=== PATIENT | female | born 1950 | race Caucasian/White ===

== ENCOUNTER 2018-02-24 13:20 | Emergency (ER) | payer BC ==
[~2018-02-24] VITALS: Ht 170.2 cm; Wt 140.6 kg
[~2018-02-24 13:20] MED LIST: CLC100X PO; LEVO125T8 PO; MULTTAB58 PO; NAPR220T40 PO; PHEN1TAB86 PO; [UNRECOGNIZED DRUG - OTHER]
[2018-02-24 13:29] VITALS: TEMP 36.7; Ht 170.2 cm; Wt 140.6 kg
--- NOTE | 2018-02-24 14:28 | EMERGENCY ROOM VISIT NOTE ---
History Report prepared by Bakari: Fina Kumar Under the Supervision of: Dr. Fernando Puri D.O. First contact with patient: 14:12 Chief Complaint: OTHER COMPLAINT Stated Complaint: FACE WARM, HEART BEAT CAN BE FELT SOMETIMES History of Present Illness The patient is a 67 year old female who presents to the Emergency Room with complaints of persistent general palpitations since this morning. The patient notes that about three months ago she was started on a diuretic and she had already been taking Losartan for her blood pressure. She notes that within a couple weeks of use, she began to develop a rash on her back and her face became hot. She notes she developed palpitations at the same time. She informed her PCP and she was taken off the diuretic and her symptoms soon resolved. She states that was about one month ago when her symptoms resolved and the last time she experienced the palpitations. She currently describes the palpitations as loud, though not fast. She denies any current rash. She denies any history of irregular rhythm. She denies any chest pain or shortness of breath. She denies any new leg swelling. She is unsure when the last time her thyroid studies were checked. She notes she was told she had a heart murmur several years ago. She denies any tobacco use or alcohol use. Source of History: patient Onset: since this morning Position: other (general ) Quality: other (palpitations) Timing: other (persistent) Associated Symptoms: No chest pain, No SOB, No rash Note: She denies any new leg swelling. Review of Systems See HPI for pertinent positives & negatives. A total of 10 systems reviewed and were otherwise negative. Past Medical & Surgical Medical Problems: (1) HTN (hypertension) (2) Seizure Surgical Problems: (1) H/O removal of cyst (2) H/O: hysterectomy (3) Hx of cholecystectomy Family History No pertinent family history Social History Smoking Status: Never Smoker Smokeless Tobacco Use: No Alcohol Use: none Drug Use: none Marital Status: single Housing Status: lives alone Occupation Status: unemployed Current/Historical Medications Scheduled Ascorbic Acid (Vitamin C), 500 MG PO DAILY Cholecalciferol (Vitamin D3), 1,000 UNITS PO DAILY Flaxseed (Linseed) (Flax Oil), TID Levothyroxine Sodium (Synthroid), 125 MCG PO DAILY Losartan Potassium (Cozaar), 100 MG PO DAILY Naproxen Sodium (Aleve), 220 MG PO PRN Phenobarbital (Phenobarbital), 32.4 MG PO TID [chl], DAILY Allergies Coded Allergies: Phenytoin (Verified Allergy, Severe, THROAT SWELLING, 02/24/18) THROAT SWELLING Adhesives (Verified Allergy, Unknown, _, 02/24/18) Acetaminophen (Verified Adverse Reaction, Mild, NIGHTMARES, 02/24/18) NIGHTMARES Physical Exam Vital Signs Date Time Temp Pulse Resp B/P (MAP) Pulse Ox O2 Delivery O2 Flow Rate FiO2 02/24/18 16:14 62 170/66 94 02/24/18 14:59 62 184/74 95 Room Air 02/24/18 14:59 95 Room Air 02/24/18 14:22 78 02/24/18 13:29 36.7 80 18 161/75 95 Room Air Physical Exam GENERAL: Patient is awake, alert, and in no acute distress. Patient is resting comfortably and showing no signs of anxiety EYES: The conjunctivae are clear. The pupils are round and reactive. EARS, NOSE, MOUTH AND THROAT: The nose is without any evidence of any deformity. Mucous membranes are moist tongue is midline NECK: The neck is nontender and supple. RESPIRATORY: Normal respiratory effort is noted there is no evidence of wheezing rhonchi or rales CARDIOVASCULAR: Regular rate and rhythm noted. Systolic murmur suggested by auscultation. GASTROINTESTINAL: The abdomen is soft. Bowel sounds are present in all quadrants. Abdomen is nontender MUSCULOSKELETAL/EXTREMITIES: There is no evidence of gross deformity full range of motion is noted in the hips and shoulders SKIN: Trace pedal edema bilaterally. NEUROLOGIC: Patient is awake alert and oriented x3. Medical Decision & Procedures ER Provider Diagnostic Interpretation: Radiology results as stated below per my review and radiologist interpretation: SINGLE VIEW CHEST CLINICAL HISTORY: Dyspnea. FINDINGS: An AP, portable, upright chest radiograph is obtained. No prior studies are available for comparison at the time of dictation. The examination is degraded by portable technique and patient rotation. The heart is enlarged and there is atherosclerotic calcification of the thoracic aorta. The pulmonary vasculature is noncongested. Nonspecific interstitial thickening is likely chronic. No airspace consolidation or large pleural effusion is identified. No pneumothorax is seen. The skeletal structures are osteopenic. Degenerative change is noted throughout the thoracic spine. IMPRESSION: Cardiomegaly with no acute cardiopulmonary abnormality. Electronically signed by: Jaskaran Calix M.D. 02/24/2018 2:34 PM Dictated Date/Time: 02/24/2018 2:32 PM Laboratory Results 02/24/18 14:45 Red Blood Count 4.73, Mean Corpuscular Volume 95.6, Mean Corpuscular Hemoglobin 32.1, Mean Corpuscular Hemoglobin Concent 33.6, Mean Platelet Volume 10.7, Neutrophils (%) (Auto) 72.1, Lymphocytes (%) (Auto) 18.8, Monocytes (%) (Auto) 7.4, Eosinophils (%) (Auto) 1.2, Basophils (%) (Auto) 0.3, Neutrophils # (Auto) 6.51, Lymphocytes # (Auto) 1.70, Monocytes # (Auto) 0.67, Eosinophils # (Auto) 0.11, Basophils # (Auto) 0.03 02/24/18 14:45 Test 02/24/18 14:45 White Blood Count 9.04 K/uL (4.8-10.8) Red Blood Count 4.73 M/uL (4.2-5.4) Hemoglobin 15.2 g/dL (12.0-16.0) Hematocrit 45.2 % (37-47) Mean Corpuscular Volume 95.6 fL (80-100) Mean Corpuscular Hemoglobin 32.1 pg (25-34) Mean Corpuscular Hemoglobin Concent 33.6 g/dl (32-36) Platelet Count 219 K/uL (130-400) Mean Platelet Volume 10.7 fL (7.4-10.4) Neutrophils (%) (Auto) 72.1 % Lymphocytes (%) (Auto) 18.8 % Monocytes (%) (Auto) 7.4 % Eosinophils (%) (Auto) 1.2 % Basophils (%) (Auto) 0.3 % Neutrophils # (Auto) 6.51 K/uL (1.4-6.5) Lymphocytes # (Auto) 1.70 K/uL (1.2-3.4) Monocytes # (Auto) 0.67 K/uL (0.11-0.59) Eosinophils # (Auto) 0.11 K/uL (0-0.5) Basophils # (Auto) 0.03 K/uL (0-0.2) RDW Standard Deviation 46.6 fL (36.4-46.3) RDW Coefficient of Variation 13.4 % (11.5-14.5) Immature Granulocyte % (Auto) 0.2 % Immature Granulocyte # (Auto) 0.02 K/uL (0.00-0.02) Prothrombin Time 10.8 SECONDS (9.0-12.0) Prothromb Time International Ratio 1.0 (0.9-1.1) Activated Partial Thromboplast Time 26.9 SECONDS (21.0-31.0) Partial Thromboplastin Ratio 1.0 Anion Gap 8.0 mmol/L (3-11) Est Creatinine Clear Calc Drug Dose 92.1 ml/min Estimated GFR () 80.5 Estimated GFR (Non- 69.4 BUN/Creatinine Ratio 22.2 (10-20) Calcium Level 9.4 mg/dl (8.5-10.1) Magnesium Level 1.9 mg/dl (1.8-2.4) Total Bilirubin 0.3 mg/dl (0.2-1) Aspartate Amino Transf (AST/SGOT) 14 U/L (15-37) Alanine Aminotransferase (ALT/SGPT) 29 U/L (12-78) Alkaline Phosphatase 72 U/L (45-117) Troponin I < 0.015 ng/ml (0-0.045) Total Protein 8.0 gm/dl (6.4-8.2) Albumin 3.5 gm/dl (3.4-5.0) Globulin 4.5 gm/dl (2.5-4.0) Albumin/Globulin Ratio 0.8 (0.9-2) Thyroid Stimulating Hormone (TSH) 1.560 uIu/ml (0.300-4.500) Free Thyroxine 1.20 ng/dl (0.80-1.60) Phenobarbital Level 10.3 mcg/mL (15.0-40.0) Laboratory results per my review. ECG Per My Interpretation Indication: palpitations Rate (beats per minute): 62 Rhythm: sinus with SA Findings: no acute ischemic change, no ectopy Change: no significant change (when compared to 09/23/2012) ED Course 1421: The patient was evaluated in room C6. A complete history and physical examination were performed. 1520: I reassessed the patient at this time. She is feeling better. 1600: I reassessed the patient at this time. She is feeling better and resting comfortably. I discussed the results and treatment plan with the patient. I answered all pertaining questions that she had. She expressed understanding and verbalized agreement. The patient will be discharged home. Medical Decision Prior records/ancillary studies reviewed. Triage Nursing notes reviewed. The patient's history was concerning for palpitations. Differential diagnosis: Etiologies such as premature contractions, electrolyte abnormality, cardiac dysrhythmia, thyroid dysfunction, pulmonary embolism, infection, gastrointestinal, as well as others were entertained. The patient is a 67-year-old female who presented to the emergency department palpitations. The patient had a few episode of PVCs on the monitor. She did not appear to be significantly symptomatically these PVCs. She denied having chest pain or exertional symptoms. I discussed the patient's laboratory and radiographic studies with her. She was encouraged to rest and avoid any strenuous activity. She was also encouraged to continue all medications as prescribed. I discussed the possibility that she may need further studies such as an echocardiogram or Holter monitor to further evaluate her symptoms. She was also encouraged to return to the emergency department immediately if symptoms change worsen or the need arises. Medication Reconcilliation Current Medication List: was personally reviewed by me Blood Pressure Screening Patient's blood pressure: Elevated blood pressure Blood pressure disposition: Elevated BP felt to be situational Impression Primary Impression: Palpitations Additional Impression: PVC (premature ventricular contraction) Scribe Attestation The scribe's documentation has been prepared under my direction and personally reviewed by me in its entirety. I confirm that the note above accurately reflects all work, treatment, procedures, and medical decision making performed by me. Departure Information Dispostion Home / Self-Care Referrals Shon Garcia M.D. (PCP) Forms HOME CARE DOCUMENTATION FORM, IMPORTANT VISIT INFORMATION, WORK / SCHOOL INSTRUCTIONS Patient Instructions Heart Palpitations, My [facility], Premature Ventricular Contract About Additional Instructions Call your family doctor in the morning to schedule a follow-up appointment. Rest and avoid any strenuous activity. You may require further study such as an echocardiogram and a Holter monitor to further evaluate the cause your symptoms. Return to the emergency department immediately if symptoms change worsen or the need arises. Problem Qualifiers
--- NOTE | 2018-02-24 14:36 | DIAGNOSTIC IMAGING REPORT ---
SINGLE VIEW CHEST CLINICAL HISTORY: Dyspnea. FINDINGS: An AP, portable, upright chest radiograph is obtained. No prior studies are available for comparison at the time of dictation. The examination is degraded by portable technique and patient rotation. The heart is enlarged and there is atherosclerotic calcification of the thoracic aorta. The pulmonary vasculature is noncongested. Nonspecific interstitial thickening is likely chronic. No airspace consolidation or large pleural effusion is identified. No pneumothorax is seen. The skeletal structures are osteopenic. Degenerative change is noted throughout the thoracic spine. IMPRESSION: Cardiomegaly with no acute cardiopulmonary abnormality. Electronically signed by: Jaskaran Calix M.D. 02/24/2018 2:34 PM Dictated Date/Time: 02/24/2018 2:32 PM
[2018-02-24] MEDS ORDERED: LOSA1TAB38 PO (14:57)
[2018-02-24] MEDS ORDERED: CHOL1000 PO (14:57)
[2018-02-24] MEDS ORDERED: SYN125 PO (14:57)
[2018-02-24] MEDS ORDERED: FLAXOIL2 (14:57)
[2018-02-24] MEDS ORDERED: PB30 PO (14:57)
[2018-02-24] MEDS ORDERED: ASCA500 PO (14:57)
[2018-02-24 14:59] VITALS: O2SAT 95
[2018-02-24 15:02] LABS: BASO % 0.3 %; BASO ABS # 0.03 K/uL (0-0.2); EOS % 1.2 %; EOS ABS # 0.11 K/uL (0-0.5); HEMATOCRIT 45.2 % (37-47); HEMOGLOBIN 15.2 g/dL (12.0-16.0); IG# 0.02 K/uL (0.00-0.02); LYMPH % 18.8 %; MEAN CELL VOLUME 95.6 fL (80-100); MEAN CORPUSCULAR HEMOGLOBIN 32.1 pg (25-34); MEAN CORPUSCULAR HGB CONC 33.6 g/dl (32-36); MEAN PLATELET VOLUME 10.7 fL (7.4-10.4); MONO % 7.4 %; MONO ABS # 0.67 K/uL (0.11-0.59); NEUT % 72.1 %; NEUT ABS # 6.51 K/uL (1.4-6.5); PLATELET COUNT 219 K/uL (130-400); RED CELL DISTRIBUTION WIDTH CV 13.4 % (11.5-14.5); RED CELL DISTRIBUTION WIDTH SD 46.6 fL (36.4-46.3); WHITE BLOOD COUNT 9.04 K/uL (4.8-10.8)
[2018-02-24 15:07] LABS: PTT PATIENT 26.9 SECONDS (21.0-31.0)
[2018-02-24 15:52] LABS: ALBUMIN 3.5 gm/dl (3.4-5.0); ALKALINE PHOSPHATASE 72 U/L (45-117); ALT/SGPT 29 U/L (12-78); AST/SGOT 14 U/L (15-37); BLOOD UREA NITROGEN 19 mg/dl (7-18); CALCIUM 9.4 mg/dl (8.5-10.1); CARBON DIOXIDE 27 mmol/L (21-32); CREATININE 0.86 mg/dl (0.60-1.20); GLUCOSE 116 mg/dl (70-99); POTASSIUM 4.3 mmol/L (3.5-5.1); SODIUM 137 mmol/L (136-145)
[2018-02-24 16:14] VITALS: BP 170/66; PULSE 62; O2SAT 94
== END 2018-02-24 16:16 | disposition home or self-care (01) ==
LOC: C.EDB 13:23 → C.EDC 16:16
DX: R00.2 Palpitations (principal); I49.3 Ventricular premature depolarization; I10 Essential (primary) hypertension; Z88.8 Allergy status to other drugs, medicaments and biological substances

== ENCOUNTER 2023-05-05 11:20 | Inpatient (IN) ==
[2023-05-05] MEDS ORDERED: hydrALAZINE HCL 20 MG/ML VIAL IV STA ×2 (12:07→14:05)
--- NOTE | 2023-05-05 12:28 | Emergency Department Note ---
Impression & Plan Hypertension, Atrial flutter ED Provider Note NAME: SARAH MCCORMACK AGE: 73 SEX: F : 1950 ARRIVES VIA: Walk-In INFORMANT: [Patient] ED PROVIDER(S): [Jaskaran Shi MD] CHIEF COMPLAINT: Abnormal labs/ECG HISTORY OF PRESENT ILLNESS: The patient is a 73-year-old female who states that she had an eye procedure today as an outpatient and afterwards, was found to be in atrial flutter/atrial fibrillation. The patient states that she has been hypertensive today. She took her normal medications for blood pressure this morning. Patient is not short of breath, no fluttering in the chest. No chest pain. She has no history of previous A-fib or a flutter. She is not on blood thinning agents. PMHx/PSHx: See Below SOCIAL HISTORY: See Below. PHYSICAL EXAM: GENERAL: Patient is in no acute distress. HEENT: No acute trauma, normocephalic atraumatic, mucous membranes moist, no nasal congestion. NECK: No stridor, no adenopathy, no meningismus, trachea is midline. LUNGS: Clear to auscultation bilaterally, no wheeze, no rhonchi, breath sounds equal. HEART: Irregular rhythm, normal rate, no murmurs ABDOMEN: Soft, nontender, bowel sounds positive, no peritonitis. EXTREMITIES: No cyanosis, significant bilateral pedal edema, full range of motion of all the joints without pain or difficulty, no signs for acute trauma. NEUROLOGIC: Oriented x 3, no acute motor or sensory deficits, no focal weakness. SKIN: No rash, no jaundice, no diaphoresis. DIFFERENTIAL DIAGNOSIS: A-fib or a flutter, SVT, V. tach, uncontrolled hypertension, renal failure, electrolyte imbalance, thyroid disorder, [place], among others. EMERGENCY DEPARTMENT COURSE/PROCEDURES: Prior/Outside records reviewed: Outpatient surgical center note. ECG per my interpretation: Indication was abnormal ECG. The ECG shows atrial flutter with variable AV block. The rate is 73. There is no ST elevation, no PVCs. There is some nonspecific ST change. The QTc is 420 Continuous Cardiac Monitoring per my interpretation: An order was placed for continuous cardiac monitoring. The monitor shows a rate of 77 with atrial flutter. Critical Care Note: I have personally spent 41 minutes of critical care time in the direct management of this patient. This includes bedside care, interpretation of diagnostic studies, and testing, discussion with consultants, patient, and family members, and other required patient management activities. This 41 minutes is in excess of all separately billable procedures. MEDICAL DECISION MAKING: There is no leukocytosis or concerning anemia. There is a normal platelet count. No coagulopathy. No renal failure or significant electrolyte abnormality. No concerning liver enzyme elevation. Patient appears to be in a euthyroid state. ECG shows atrial flutter with a variable block. The rate is in the 70s. Cardiac enzyme testing x1 is not consistent with acute cardiac injury. COVID test returned negative. Chest film did not show mediastinal widening, pneumonia or pneumothorax per my review. Patient was given her typical dose of oral phenobarbital, this medication was due. She received IV hydralazine, 10 mg. A second dose of IV hydralazine was given. I did contact Dr. Wild of cardiology. No emergent cardiac intervention is required as the patient is rate controlled. The patient does likely have und erlying conduction disease as her heart rate should be quite a bit faster-she is not on any rate limiting medications. Patient's blood pressure needs controlled, work-up for the atrial flutter is req uired. Hospitalization is indicated. Of note, I did avoid using beta-blockers or calcium channel blockers for hypertension as I did not want to further lower the ventricular rate, or further worsen the conduction block. DISPOSITION: Patient's presentation and findings warrant a hospital stay. Past Med/Surg History Medical History Abnormal blood findings pt unable to specify. states "something about protein." follows with [facility]. Anxiety Cardiac murmur echo 11/2022 [place]. no [place] History of rectal abscess History of uterine cancer treated surgically HTN (hypertension) Hypercholesteremia Hypothyroidism Morbid obesity Osteoarthritis Poor historian Sciatica Seizures per pt, last seizure >20 years ago Surgical History History of cholecystectomy History of rectal surgery x 4 for rectal abscess History of removal of cyst multiple History of tooth extraction History of total abdominal hysterectomy and bilateral salpingo-oophorectomy Family History Father Hodgkin disease Mother Heart disease Sister Cancer Denies family history of Ovarian cancer Prostate cancer Myocardial infarction Breast cancer Colorectal cancer Social History Smoking Status: Never smoker Second Hand Exposure: No; Do You Dip or Chew Tobacco: No; Hx Alcohol Use: No Hx Substance Use: No Preferred Language: Palauan Communication Ability: Effective Visual Impairment: No Limitations Hearing Ability: Normal Banquet Director Required: No Beliefs That Will Affect Care: None marital status: Single Current Living Situation: Alone current occupational status: retired current occupation: retired from career with [employer] Feels Safe at Home: Yes Childhood Exposure to Second-Hand Smoke: No Diet: regular caffeine: Yes during the past year weight has: decreased > 10 lbs Dental Care, Regularly: Yes Physical Activity Frequency: Daily Physical Activity Frequency Comment: stretch exercises for back and legs Seatbelt Use: always Sunscreen Use: No Assistive Devices: Glasses Allergies Allergies Allergy/AdvReac Type Severity Reaction Status Date / Time phenytoin Allergy Severe THROAT Verified 05/05/23 09:26 SWELLING dilantin caps adhesive Allergy Unknown Rash Verified 05/05/23 09:14 oxycodone Allergy Unknown pt unsure Verified 05/05/23 09:14 Sulfa (Sulfonamide Allergy pt unsure Verified 05/05/23 09:14 Antibiotics) hydrochlorothiazide AdvReac Severe 'THUMPING Verified 05/05/23 09:14 [From Hyzaar] SENSATION IN SKIN OVER ENTIRE BODY' losartan [From Hyzaar] AdvReac Severe 'THUMPING Verified 05/05/23 09:14 SENSATION IN SKIN OVER ENTIRE BODY' acetaminophen AdvReac Mild NIGHTMARES Verified 05/05/23 09:14 Home Meds Home Medications Medication Instructions Recorded Confirmed cholecalciferol (vitamin D3) 25 1,000 unit PO QAM 01/25/19 05/05/23 mcg (1,000 unit) tablet (Vitamin D3) flaxseed oil 1,000 mg capsule 1,000 mg PO QAM 01/25/19 05/05/23 naproxen sodium 220 mg tablet 220 mg PO DAILY PRN Pain 11/10/19 05/05/23 ascorbic acid (vitamin C) 500 mg 500 mg PO QAM 12/04/21 05/05/23 tablet docusate sodium 50 mg capsule 50 mg PO DAILY PRN Constipation 04/28/23 05/05/23 (Stool Softener) levothyroxine 125 mcg tablet 125 mcg PO QAM 04/28/23 05/05/23 losartan 100 mg tablet 100 mg PO QAM 04/28/23 05/05/23 Previous Rx's Medication Instructions Recorded phenobarbital 30 mg tablet 30 mg PO TID #90 tabs 01/06/23 Results & Data (ED) Vital Signs Vital Signs - 24 hr 05/05/23 11:23 05/05/23 11:48 05/05/23 12:14 Temperature 36.6 C Temperature Source Temporal Artery Scan Pulse Rate 85 77 Pulse Rate [Apical] 69 Pulse Rhythm [Apical] Regular Respiratory Rate 20 16 Respiratory Effort / Characteristics Non-Labored Spontaneous Respiratory Depth Normal Blood Pressure 198/129 H Blood Pressure [Left Arm] 196/101 H Blood Pressure Mean 152 Blood Pressure Mean [Left Arm] 132 Pulse Oximetry 98 96 Oxygen Delivery Method Room Air Room Air Sepsis Recent Fever Within 48 Hours No Sepsis New/Unexplained Change in Mental Status N/A Sepsis Action Taken by Nursing No Action Required 05/05/23 13:03 Temperature Temperature Source Pulse Rate Pulse Rate [Apical] 82 Pulse Rhythm [Apical] Regular Respiratory Rate 18 Respiratory Effort / Characteristics Respiratory Depth Blood Pressure Blood Pressure [Left Arm] 226/108 H Blood Pressure Mean Blood Pressure Mean [Left Arm] 147 Pulse Oximetry 95 Oxygen Delivery Method Room Air Sepsis Recent Fever Within 48 Hours Sepsis New/Unexplained Change in Mental Status Sepsis Action Taken by Longterm Medications Current Medication List: was personally reviewed by me Laboratory Data Attestation: I reviewed the patient's lab results. 05/05/23 11:44 05/05/23 11:44 Lab Results 05/05/23 05/05/23 05/05/23 Range/Units 11:44 11:44 12:53 WBC Cancelled RBC Cancelled Hgb Cancelled Hct Cancelled MCV Cancelled MCH Cancelled MCHC Cancelled RDW Std Deviation Cancelled RDW Coeff of Danette Cancelled Plt Count Cancelled MPV Cancelled Immature Gran % (Auto) Cancelled Neut % (Auto) Cancelled Lymph % (Auto) Cancelled [place] % (Auto) Cancelled Eos % (Auto) Cancelled Baso % (Auto) Cancelled Neut # (Auto) Cancelled Lymph # (Auto) Cancelled [place] # (Auto) Cancelled Eos # (Auto) Cancelled Baso # (Auto) Cancelled Immature Gran # (Auto) Cancelled Absolute Nucleated RBC Cancelled Nucleated RBC % (auto) Cancelled Neutrophils % (Manual) Cancelled Band Neutrophils % Cancelled Lymphocytes % (Manual) Cancelled Prolymphocyte % Cancelled Reactive Lymphs % (Man) Cancelled Monocytes % (Manual) Cancelled Eosinophils % (Manual) Cancelled Basophils % (Manual) Cancelled Metamyelocytes % (Man) Cancelled Myelocytes % (Man) Cancelled Promyelocytes % (Man) Cancelled Blast Cells % (Manual) Cancelled Plasma Cell % (Manual) Cancelled Other Cells % Cancelled Nucleated RBC % Cancelled Neutrophils # (Manual) Cancelled Band Neutrophils # Cancelled Total Absolute Neuts Cancelled Lymphocytes # (Manual) Cancelled Prolymphocyte # Cancelled Reactive Lymphs # Cancelled Total Abs Lymphocytes Cancelled Monocytes # (Manual) Cancelled Eosinophils # (Manual) Cancelled Basophils # (Manual) Cancelled Metamyelocytes # (Man) Cancelled Myelocytes # (Manual) Cancelled Promyelocytes # (Man) Cancelled Blast Cells # (Man) Cancelled Plasma Cell # (Manual) Cancelled Other Cells # Cancelled Nucleated RBCs # (Man) Cancelled Hypersegmented Neuts Cancelled Hyposegmented Neuts Cancelled Hypogranular Neuts Cancelled Large Granular Lymphs Cancelled # Lrg Granular Lymphs Cancelled Hairy Cells Cancelled Smudge Cells Cancelled Toxic Granulation Cancelled Toxic Vacuolation Cancelled Dohle Bodies Cancelled Ailyn Rods Cancelled Platelet Estimate Cancelled Hypogranular Platelets Cancelled Giant Platelets Cancelled Platelet Satelliting Cancelled RBC Morphology Cancelled Polychromasia Cancelled Hypochromasia Cancelled Poikilocytosis Cancelled Basophilic Stippling Cancelled Anisocytosis Cancelled Microcytosis Cancelled Macrocytosis Cancelled Spherocytes Cancelled Pappenheimer Bodies Cancelled Sickle Cells Cancelled Target Cells Cancelled Tear Drop Cells Cancelled Ovalocytes Cancelled Stomatocytes Cancelled Ling-Renova Bodies Cancelled Echinocytes Cancelled Acanthocytes (Spur) Cancelled Rouleaux Cancelled RBC Agglutinates Cancelled Schistocytes Cancelled Sezary Cell Cancelled PT (9.0-12.0) Seconds INR (0.9-1.1) APTT (21.0-31.0) Seconds PTT Ratio Sodium Cancelled Potassium Cancelled Chloride Cancelled Carbon Dioxide Cancelled Anion Gap Cancelled BUN Cancelled Creatinine Cancelled Est Cr Clr Drug Dosing Cancelled Est GFR ( Amer) Cancelled Est GFR (Non-Af Amer) Cancelled BUN/Creatinine Ratio Cancelled Glucose Cancelled Calcium Cancelled Magnesium Cancelled Total Bilirubin Cancelled AST Cancelled ALT Cancelled Alkaline Phosphatase Cancelled Troponin I High Sens Cancelled Total Protein Cancelled Albumin Cancelled Globulin Cancelled Albumin/Globulin Ratio Cancelled TSH (0.300-4.500) uIu/ml SARS-CoV-2, RNA, NAAT NEGATIVE (NEGATIVE) Blood Parasites ID Cancelled 05/05/23 05/05/23 05/05/23 Range/Units 13:13 13:13 13:13 WBC 9.07 RBC 4.81 Hgb 15.7 Hct 45.4 MCV 94.4 MCH 32.6 MCHC 34.6 RDW Std Deviation 43.8 RDW Coeff of Danette 12.6 Plt Count 216 MPV 10.7 Immature Gran % (Auto) 0.2 Neut % (Auto) 65.7 Lymph % (Auto) 24.3 [place] % (Auto) 7.4 Eos % (Auto) 1.7 Baso % (Auto) 0.7 Neut # (Auto) 5.97 Lymph # (Auto) 2.20 [place] # (Auto) 0.67 H Eos # (Auto) 0.15 Baso # (Auto) 0.06 Immature Gran # (Auto) 0.02 Absolute Nucleated RBC Nucleated RBC % (auto) Neutrophils % (Manual) Band Neutrophils % Lymphocytes % (Manual) Prolymphocyte % Reactive Lymphs % (Man) Monocytes % (Manual) Eosinophils % (Manual) Basophils % (Manual) Metamyelocytes % (Man) Myelocytes % (Man) Promyelocytes % (Man) Blast Cells % (Manual) Plasma Cell % (Manual) Other Cells % Nucleated RBC % Neutrophils # (Manual) Band Neutrophils # Total Absolute Neuts Lymphocytes # (Manual) Prolymphocyte # Reactive Lymphs # Total Abs Lymphocytes Monocytes # (Manual) Eosinophils # (Manual) Basophils # (Manual) Metamyelocytes # (Man) Myelocytes # (Manual) Promyelocytes # (Man) Blast Cells # (Man) Plasma Cell # (Manual) Other Cells # Nucleated RBCs # (Man) Hypersegmented Neuts Hyposegmented Neuts Hypogranular Neuts Large Granular Lymphs # Lrg Granular Lymphs Hairy Cells Smudge Cells Toxic Granulation Toxic Vacuolation Dohle Bodies Ailyn Rods Platelet Estimate Hypogranular Platelets Giant Platelets Platelet Satelliting RBC Morphology Polychromasia Hypochromasia Poikilocytosis Basophilic Stippling Anisocytosis Microcytosis Macrocytosis Spherocytes Pappenheimer Bodies Sickle Cells Target Cells Tear Drop Cells Ovalocytes Stomatocytes Ling-Renova Bodies Echinocytes Acanthocytes (Spur) Rouleaux RBC Agglutinates Schistocytes Sezary Cell PT 11.5 (9.0-12.0) Seconds INR 1.1 (0.9-1.1) APTT 28.5 (21.0-31.0) Seconds PTT Ratio 1.0 Sodium Potassium Chloride Carbon Dioxide Anion Gap BUN Creatinine Est Cr Clr Drug Dosing Est GFR ( Amer) Est GFR (Non-Af Amer) BUN/Creatinine Ratio Glucose Calcium Magnesium Total Bilirubin AST ALT Alkaline Phosphatase Troponin I High Sens Total Protein Albumin Globulin Albumin/Globulin Ratio TSH 1.952 (0.300-4.500) uIu/ml SARS-CoV-2, RNA, NAAT (NEGATIVE) Blood Parasites ID 05/05/23 Range/Units 13:13 WBC RBC Hgb Hct MCV MCH MCHC RDW Std Deviation RDW Coeff of Danette Plt Count MPV Immature Gran % (Auto) Neut % (Auto) Lymph % (Auto) [place] % (Auto) Eos % (Auto) Baso % (Auto) Neut # (Auto) Lymph # (Auto) [place] # (Auto) Eos # (Auto) Baso # (Auto) Immature Gran # (Auto) Absolute Nucleated RBC Nucleated RBC % (auto) Neutrophils % (Manual) Band Neutrophils % Lymphocytes % (Manual) Prolymphocyte % Reactive Lymphs % (Man) Monocytes % (Manual) Eosinophils % (Manual) Basophils % (Manual) Metamyelocytes % (Man) Myelocytes % (Man) Promyelocytes % (Man) Blast Cells % (Manual) Plasma Cell % (Manual) Other Cells % Nucleated RBC % Neutrophils # (Manual) Band Neutrophils # Total Absolute Neuts Lymphocytes # (Manual) Prolymphocyte # Reactive Lymphs # Total Abs Lymphocytes Monocytes # (Manual) Eosinophils # (Manual) Basophils # (Manual) Metamyelocytes # (Man) Myelocytes # (Manual) Promyelocytes # (Man) Blast Cells # (Man) Plasma Cell # (Manual) Other Cells # Nucleated RBCs # (Man) Hypersegmented Neuts Hyposegmented Neuts Hypogranular Neuts Large Granular Lymphs # Lrg Granular Lymphs Hairy Cells Smudge Cells Toxic Granulation Toxic Vacuolation Dohle Bodies Ailyn Rods Platelet Estimate Hypogranular Platelets Giant Platelets Platelet Satelliting RBC Morphology Polychromasia Hypochromasia Poikilocytosis Basophilic Stippling Anisocytosis Microcytosis Macrocytosis Spherocytes Pappenheimer Bodies Sickle Cells Target Cells Tear Drop Cells Ovalocytes Stomatocytes Ling-Renova Bodies Echinocytes Acanthocytes (Spur) Rouleaux RBC Agglutinates Schistocytes Sezary Cell PT (9.0-12.0) Seconds INR (0.9-1.1) APTT (21.0-31.0) Seconds PTT Ratio Sodium 140 Potassium 4.0 Chloride 105 Carbon Dioxide 27 Anion Gap 8 BUN 21 Creatinine 0.83 Est Cr Clr Drug Dosing 84.6 Est GFR ( Amer) 80.5 Est GFR (Non-Af Amer) 69.5 BUN/Creatinine Ratio 25.3 H Glucose 115 H Calcium 9.7 Magnesium 1.9 Total Bilirubin 0.4 AST 13 ALT 12 Alkaline Phosphatase 68 Troponin I High Sens 11.3 Total Protein 7.9 Albumin 4.1 Globulin 3.8 Albumin/Globulin Ratio 1.1 TSH (0.300-4.500) uIu/ml SARS-CoV-2, RNA, NAAT (NEGATIVE) Blood Parasites ID Administered Medications Discontinued Medications Hydralazine HCl (Hydralazine Hcl 20 Mg/Ml Vial) 10 mg IV NOW STA Stop: 05/05/23 12:08 Last Admin: 05/05/23 12:53 Dose: 10 mg Documented By: KV Hydralazine HCl (Hydralazine Hcl 20 Mg/Ml Vial) 10 mg IV NOW STA Stop: 05/05/23 14:06 Last Admin: 05/05/23 14:51 Dose: 10 mg Documented By: KV Phenobarbital (Phenobarbital 30 Mg Tab) 30 mg PO NOW STA Stop: 05/05/23 13:17 Last Admin: 05/05/23 14:51 Dose: 30 mg Documented By: KV Imaging Data Radiologist's Impression: Chest X-Ray 05/05/23 12:11 XR chest 1V portable CLINICAL HISTORY: weakness TECHNIQUE: Single frontal radiograph of the chest was obtained. Comparison: Comparison is made to chest radiograph 02/24/2018 FINDINGS: No lines and tubes are seen. Cardiomegaly is noted. The lungs are clear. No evidence of pleural effusion or pneumothorax. IMPRESSION: No acute chest disease. ACT 112: Negative or not required by law. Electronically signed by: Obi Padilla M.D. 05/05/2023 1:23 PM Discharge Plan Visit Data Chief Complaint: Abnormal Labs/Diagnostic Testing Stated Complaint: ABNORMAL EKG ED Provider: Jaskaran Shi Discharge Problem: Hypertension, Atrial flutter Patient Disposition: Admitted As Inpatient Condition: Fair Forms Stand Alone Forms: [facility] Prescriptions Prescriptions: No Action phenobarbital 30 mg tablet 30 mg PO TID Qty: 90 5RF flaxseed oil 1,000 mg Capsule 1,000 mg PO QAM cholecalciferol (vitamin D3) [Vitamin D3] 1,000 unit Tablet 1,000 unit PO QAM naproxen sodium 220 mg tablet 220 mg PO DAILY PRN (Reason: Pain) ascorbic acid (vitamin C) 500 mg tablet 500 mg PO QAM Stool Softener 50 mg Capsule 50 mg PO DAILY PRN (Reason: Constipation) levothyroxine 125 mcg tablet 125 mcg PO QAM losartan 100 mg tablet 100 mg PO QAM Referrals Referrals: Chris Acosta DO [Primary Care Provider] -
[2023-05-05] MEDS ORDERED: PHENobarbitaL 30 MG TAB PO STA (13:16)
--- NOTE | 2023-05-05 13:25 | XRay Report ---
XR chest 1V portable CLINICAL HISTORY: weakness TECHNIQUE: Single frontal radiograph of the chest was obtained. Comparison: Comparison is made to chest radiograph 02/24/2018 FINDINGS: No lines and tubes are seen. Cardiomegaly is noted. The lungs are clear. No evidence of pleural effus ion or pneumothorax. IMPRESSION: No acute chest disease. ACT 112: Negative or not required by law. Electronically signed by: Obi Padilla M.D. 05/05/2023 1:23 PM
[2023-05-05 13:31] LABS: Basophils # (auto) 0.06 K/uL (0-0.2); Basophils % (auto) 0.7 %; Eosinophils # (auto) 0.15 K/uL (0-0.50); Eosinophils % (auto) 1.7 %; Hematocrit (blood only) 45.4 % (37.0-47.0); Hemoglobin 15.7 g/dl (12.0-16.0); Immature Granulocytes # (auto) 0.02 K/uL (0.01-0.20); Immature Granulocytes % (auto) 0.2 %; Lymphocytes % (auto) 24.3 %; Mean Corpuscular Hemoglobin 32.6 pg (25.0-34.0); Mean Corpuscular Hgb Conc 34.6 g/dL (32.0-36.0); Mean Corpuscular Volume 94.4 fL (80.0-100.0); Mean Platelet Volume 10.7 fL (9.4-12.4); Monocytes # (auto) 0.67 K/uL (0.11-0.59); Monocytes % (auto) 7.4 %; Neutrophils # (auto) 5.97 K/uL (1.40-6.50); Neutrophils % (auto) 65.7 %; Platelet Count 216 K/uL (130-400); RDW Coefficient of Variation 12.6 % (11.5-14.5); RDW Standard Deviation 43.8 fL (36.4-46.3); Red Blood Count 4.81 M/uL (4.20-5.40); White Blood Count 9.07 K/ul (4.8-10.8)
[2023-05-05 13:51] LABS: Albumin Globulin Ratio 1.1 (0.9-2); Albumin Level 4.1 gm/dl (3.4-5.0); BUN Creatinine Ratio 25.3 (10-20); Bilirubin,Total 0.4 mg/dl (0.2-1.0); Calcium 9.7 mg/dl (8.6-10.3); Creatinine Clr Calc Pharmacy 84.6 ml/min; Est GFR (African American) 80.5 ml/min; Est GFR (Non-African American) 69.5 ml/min; Globulin 3.8 gm/dl (2.5-4.0); Magnesium 1.9 mg/dl (1.7-2.4); Total Protein 7.9 gm/dl (6.0-8.3)
[2023-05-05 13:56] LABS: Troponin I High Sensitivity 11.3 pg/ml (0-14)
[2023-05-05 14:08] LABS: INR 1.1 (0.9-1.1); Partial Thromboplastin Time 28.5 Seconds (21.0-31.0); Prothrombin Time 11.5 Seconds (9.0-12.0)
--- NOTE | 2023-05-05 15:14 | History & Physical Report ---
Date of Service May 05, 2023 Assessment & Plan (1) Atrial flutter: Plan: Mya Coronel is a 73-year-old female who presented for an ophthalmology procedure and was found to be in atrial flutter/atrial fibrillation and was found to additionally be hypertensive. She has no palpitations, shortness of breath, or chest pain. This is her first episode of atrial arrhythmia. She is not on blood thinners.Patient had right cataract phacoemulsification and lens implant 04/29/2023, was completed left cataract surgery today after which a flutter was noted New Aflutter - Discussed w/ cards by ER on admit. Will reassess in AM. ?pacemaker placement. No BB/CCB. -Received 2 doses of hydralazine while in ER Patient had a past strain sensation to hydrochlorothiazide, but not true allergy. Will retry for blood pressure control. If needs additional control after that we will try amlodipine, would defer other CCB or beta-blockers due to concern for worsening AV conduction -No leukocytosis. Hemoglobin 15.7 -PT/INR and APTT are normal on admit -Sodium normal. Potassium 4.0, normal. Magnesium 1.9, within normal -Creatinine with normal baseline and admitting creatinine 0.83, slightly volume contracted and with ratio of 25 -High-sensitivity troponin normal -TSH normal -Chest x-ray with no acute findings -Admitting EKG: Atrial flutter with 3:1-4:1 block, rate approximately 73. Nonspecific T wave abnormalities improved from prior, no ST segment changes -COVID-negative Unclear duration, was noted today but no preop EKG available on review. Patient does not feel her atrial flutter so duration is unknown and cardioversion not recommended on admission. 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 If additional needed would add amlodipine 5mg x1 first as next agent Elevated kappa and lambda light chains, elevated total globulin Stable ratio at prior follow-ups, suspected to be reactive/inflammatory and less likely precancerous/MGUS. She does not have concurrent anemia. No evidence of dyscrasia/multiple myeloma. Plasma cell dyscrasia work-up negative except for slightly elevated free kappa/lambda chains Patient had declined 24-hour UPEP/MARTIN Clinically has been doing well Under every 6 month follow-up Hypothyroidism TSH normal Continue Synthroid Seizure disorder 1 seizure while in the , has been on phenobarbital for many years and stable with no breakthrough seizures in many years Continue phenobarb, follow clinically DVT prophylaxis: On heparin CODE STATUS: Full code Disposition: PCU for hypertension and new a flutter with possible need for IV BP/heart rate control Diet: Regular (2) Hyperlipidemia: (3) Hypothyroidism: (4) Seizure: (5) Hypertension: (6) HTN (hypertension): History of Present Illness Primary Care Provider: Chris Acosta DO Mya is seen in the ER post cataract surgery for afib with variable block. This is her first episode of A-fib/a flutter. She notes her brother many years ago did have a medical condition that causes heart rate to go very high into the 150s, after returning home he went back into a normal rhythm but they were told that he had a "blood clot in his heart "which caused a stroke and . Mya has no personal history of blood clots, DVT, PE. She does have a history of seizure had 1x in , stable for many years with no recent surgeries. Follows w/ Dr. Maynard and has been doing well for many years on phenobarbital which is continued Had a hx of leg swelling, but no heart issues/orthopnea/shortness of breath/chest pain. Was put on a fluid pill in the past but had a reaction but does not remember what. Is noted to have had a 'thumping sensation' from hyzaar, but this was discontinued. No history of rash, throat swelling No chest pressure, chest pain, palpitations. No shortness of breath or difficulty breathing No nausea/vomiting/diarrhea/constipation Reports she 'bleeds a lot' when someone pokes her, but has no hx of GIB. +history of mild nosebleeds. No hx of hospitalization for any bleeding, never recieved blood before. [id number]= 3 She reports that her family history is not well known as most people in her family do not share their medical information so history of this is limited other than her brother passing of a blood clot in the heart as noted above. Medical History: Reviewed Medications: Reviewed Surgical History: Reviewed Family history: Reviewed Allergies: Reviewed Social History: No tobacco use. No etoh use. Code Status: Full Code. Surrogate DM would be [phone] Rei Geronimo, friend. Allergies Allergy/AdvReac Type Severity Reaction Status Date / Time phenytoin Allergy Severe THROAT Verified 05/05/23 09:26 SWELLING dilantin caps adhesive Allergy Unknown Rash Verified 05/05/23 09:14 oxycodone Allergy Unknown pt unsure Verified 05/05/23 09:14 Sulfa (Sulfonamide Allergy pt unsure Verified 05/05/23 09:14 Antibiotics) hydrochlorothiazide AdvReac Severe 'THUMPING Verified 05/05/23 09:14 [From Hyzaar] SENSATION IN SKIN OVER ENTIRE BODY' losartan [From Hyzaar] AdvReac Severe 'THUMPING Verified 05/05/23 09:14 SENSATION IN SKIN OVER ENTIRE BODY' acetaminophen AdvReac Mild NIGHTMARES Verified 05/05/23 09:14 Home Medications Medication Instructions Recorded Confirmed Type cholecalciferol (vitamin D3) 25 1,000 unit PO QAM 01/25/19 05/05/23 History mcg (1,000 unit) tablet (Vitamin D3) flaxseed oil 1,000 mg capsule 1,000 mg PO QAM 01/25/19 05/05/23 History naproxen sodium 220 mg tablet 220 mg PO DAILY PRN Pain 11/10/19 05/05/23 History ascorbic acid (vitamin C) 500 mg 500 mg PO QAM 12/04/21 05/05/23 History tablet phenobarbital 30 mg tablet 30 mg PO TID #90 tabs 01/06/23 05/05/23 Rx docusate sodium 50 mg capsule 50 mg PO DAILY PRN Constipation 04/28/23 05/05/23 History (Stool Softener) levothyroxine 125 mcg tablet 125 mcg PO QAM 04/28/23 05/05/23 History losartan 100 mg tablet 100 mg PO QAM 04/28/23 05/05/23 History Past Med/Surg History Medical History Abnormal blood findings pt unable to specify. states "something about protein." follows with [facility]. Anxiety Cardiac murmur echo 11/2022 [place]. 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 History of rectal abscess History of uterine cancer treated surgically HTN (hypertension) Hypercholesteremia Hypothyroidism Morbid obesity Osteoarthritis Poor historian Sciatica Seizures per pt, last seizure >20 years ago Surgical History History of cholecystectomy History of rectal surgery x 4 for rectal abscess History of removal of cyst multiple History of tooth extraction History of total abdominal hysterectomy and bilateral salpingo-oophorectomy Family History Father Hodgkin disease Mother Heart disease Sister Cancer Denies family history of Ovarian cancer Prostate cancer Myocardial infarction Breast cancer Colorectal cancer Social History Smoking Status: Never smoker Second Hand Exposure: No; Do You Dip or Chew Tobacco: No; Hx Alcohol Use: No Hx Substance Use: No Preferred Language: Kazakh Communication Ability: Effective Visual Impairment: No Limitations Hearing Ability: Normal 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 Beliefs That Will Affect Care: None marital status: Single Current Living Situation: Alone current occupational status: retired current occupation: retired from career with [employer] Feels Safe at Home: Yes Childhood Exposure to Second-Hand Smoke: No Diet: regular caffeine: Yes during the past year weight has: decreased > 10 lbs Dental Care, Regularly: Yes Physical Activity Frequency: Daily Physical Activity Frequency Comment: stretch exercises for back and legs Seatbelt Use: always Sunscreen Use: No Assistive Devices: Glasses Review of Systems Review of Systems: All systems reviewed & are unremarkable except as noted in HPI & below Physical Exam Physical Exam: General: A&Ox3. NAD. Cooperative. HEENT: Atraumatic, normocephalic. Vision and hearing grossly intact. Patient is with right eye And sunglasses post cataract surgery Pulm: CTAB A&P. -wheezes, -rales, -rhonchi. Symmetrical chest rise. No increased work of breathing. No respiratory distress. Cardiac: irir, +sm -rg. Radial pulses intact and symmetrical. Abdominal: Nontender, nondistended, soft. BS present. Extremities: Warm, dry without edema Results & Data Results & Data Vital Signs (Past 12 Hours) Vital Signs Temp Pulse Pulse Resp BP BP Pulse Ox 05/05/23 13:03 82 18 226/108 H 95 05/05/23 12:14 77 05/05/23 11:48 69 16 196/101 H 96 05/05/23 11:23 36.6 C 85 20 198/129 H 98 O2 Del Method 05/05/23 13:03 Room Air 05/05/23 12:14 05/05/23 11:48 Room Air 05/05/23 11:23 Room Air PG Care Time/CCT Total # of Minutes Spent Total Time Spent with Patient: Total time spent is greater than 50% in coordination of care (as documented) at patient's floor/unit and/or counseling patient: Coding Level of Care Code 77583 INT INP/OBS CARE 3/75MIN Diagnoses Atrial flutter I48.92 Atrial flutter type: unspecified Hyperlipidemia E78.5 Hypothyroidism E03.9 Seizure R56.9 Hypertension I10 Hypertension type: unspecified (1) Atrial flutter Atrial flutter type: unspecified Qualified Code(s): I48.92 - Unspecified atrial flutter (5) Hypertension Hypertension type: unspecified Qualified Code(s): I10 - Essential (primary) hypertension
[2023-05-05] MEDS ORDERED: Heparin IV Adult Wt-Based Low-Dose WITH Bolus Protocol IV SCH (15:29)
[2023-05-05] MEDS ORDERED: HEPARIN SOD (PORCINE) 1000 UNIT/ML IV ONE (15:39)
[2023-05-05] MEDS ORDERED: SPIRONOLACTONE 25 MG TAB PO ONE (15:50)
[2023-05-05] MEDS ORDERED: hydrALAZINE HCL 20 MG/ML VIAL IV PRN (15:50)
[2023-05-05 16:12] LABS: Appearance Urine Clear (Clear); Bilirubin Urine Negative (Negative); Blood Urine Negative (Negative); Color Urine Yellow; Glucose Urine UA Negative (Negative); Ketones Urine Negative (Negative); Leukocyte Esterase Urine Negative (Negative); Nitrite Urine Negative (Negative); Protein Urine Negative (Negative); Specific Gravity Urine 1.009 (1.000-1.030); Urobilinogen Urine Negative (Negative)
[2023-05-05] MEDS: HEPARIN SODIUM/DEXTROSE 25,000 UNITS/500 ML BAG IV SCH (16:25)
[2023-05-05] MEDS ORDERED: LORazepam 2 MG/1 ML VIAL IV PRN (20:17)
[2023-05-05] MEDS: PHENobarbitaL 30 MG TAB PO SCH (20:53)
[2023-05-05] MEDS: MOXIFLOXACIN OPR SCH (21:00)
[2023-05-05] MEDS: PREDNISOLONE OPR SCH (21:00)
[2023-05-05] MEDS: BROMFENAC OPR SCH (21:00)
[2023-05-05] MEDS: POLYETHYLENE (MIRALAX) 17 GM PACK PO PRN (22:06)
[2023-05-05 23:45] LABS: Partial Thromboplastin Ratio 1.4
[2023-05-05 23:52] LABS: Partial Thromboplastin Time 40.7 Seconds (21.0-31.0)
[2023-05-06] MEDS: LEVOTHYROXINE SODIUM 125 MCG TABLET PO SCH (05:58)
[2023-05-06 06:29] LABS: Basophils # (auto) 0.05 K/uL (0-0.2); Basophils % (auto) 0.7 %; Eosinophils # (auto) 0.18 K/uL (0-0.50); Eosinophils % (auto) 2.4 %; Hematocrit (blood only) 41.8 % (37.0-47.0); Hemoglobin 14.2 g/dl (12.0-16.0); Immature Granulocytes # (auto) 0.03 K/uL (0.01-0.20); Immature Granulocytes % (auto) 0.4 %; Lymphocytes # (auto) 2.17 K/uL (1.2-3.4); Lymphocytes % (auto) 28.4 %; Mean Corpuscular Hemoglobin 32.6 pg (25.0-34.0); Mean Corpuscular Volume 95.9 fL (80.0-100.0); Mean Platelet Volume 10.9 fL (9.4-12.4); Monocytes # (auto) 0.67 K/uL (0.11-0.59); Monocytes % (auto) 8.8 %; Neutrophils # (auto) 4.55 K/uL (1.40-6.50); Neutrophils % (auto) 59.3 %; Platelet Count 210 K/uL (130-400); RDW Coefficient of Variation 12.9 % (11.5-14.5); RDW Standard Deviation 45.5 fL (36.4-46.3); Red Blood Count 4.36 M/uL (4.20-5.40); White Blood Count 7.65 K/ul (4.8-10.8)
[2023-05-06 07:00] LABS: Partial Thromboplastin Ratio 1.3; Partial Thromboplastin Time 36.2 Seconds (21.0-31.0)
[2023-05-06] MEDS: LOSARTAN POTASSIUM 50 MG TAB PO SCH (07:52)
[2023-05-06] MEDS: ASCORBIC ACID 500 MG TAB PO SCH (07:53)
[2023-05-06] MEDS: PHENobarbitaL 30 MG TAB PO SCH ×3 (08:03→19:41)
[2023-05-06 08:47] LABS: Calcium 8.9 mg/dl (8.6-10.3)
[2023-05-06 08:53] LABS: BUN Creatinine Ratio 28.1 (10-20); Creatinine Clr Calc Pharmacy 78.5 ml/min; Est GFR (Non-African American) 63.8 ml/min
[2023-05-06] MEDS: MOXIFLOXACIN OPR SCH ×5 (09:04→20:55)
[2023-05-06] MEDS: PREDNISOLONE OPR SCH ×5 (09:04→20:55)
[2023-05-06] MEDS: BROMFENAC OPR SCH ×5 (09:04→20:55)
--- NOTE | 2023-05-06 11:41 | Cardiology Consultation ---
Date of Consultation May 06, 2023 Assessment & Plan (1) Atrial flutter: (2) Hypertension: (3) Systolic ejection murmur: Plan ASSESSMENT/PLAN: 1. Atrial flutter: Asymptomatic and normal heart rate. We discussed the diagnosis. We discussed treatment options. Recommend anticoagulation for stroke risk reduction. She was agreeable but would like to avoid long-term anticoagulation therapy given recurrent epistaxis. Discussed atrial flutter ablation as an option for treatment. She is agreeable to meet with hotel service manager, likely as an outpatient (Dr. Lynn). Rate controlling medications not necessary at this time. Addendum: Nursing staff called to state that she converted to sinus rhythm spontaneously. Repeat ECG documents sinus rhythm with PACs. Continue plan as above for electrophysiology consultation. 2. Hypertension: Blood pressure has been elevated chronically. She is asymptomatic. Spironolactone appeared to have reasonable improvement. Spironolactone ordered now and daily. This also offered some improvement in her lower extremity edema. Monitor renal function and potassium while on spironolactone. Low-sodium diet. Reports adverse reaction to HCTZ in the past. Could consider calcium channel selina such as amlodipine if further blood pressure control necessary, as long as her edema does not significantly worsen on calcium channel selina. 3. Murmur: Reported as possible aortic valve sclerosis or stenosis on November 2022 echo. Echo ordered and reviewed. Trace regurgitation but no significant stenosis or sclerosis noted. LV was hyperdynamic. 4. Disposition: Cardiology will sign off at this time. Patient care communicated with Dr. Keller of the primary hospitalist service. Also discussed with Dr. Lynn of electrophysiology in anticipation of upcoming consultation. Thank you for allowing me to participate in the care of your patient. Please call for any other questions or concerns. Sincerely, Piter Wild M.D. History of Present Illness Reason for Consultation: Atrial flutter Requesting Physician: Howard Kramer Attending Physician: Salbador Keller MD History of Present Illness Ms. Coronel is a very pleasant 73-year-old female with a history significant for hypertension, dyslipidemia, and seizure disorder. She was admitted on 05/05/2023 after undergoing right cataract surgery when she was noted to be hypertensive and in atrial flutter with normal heart rate. She was sent to the emergency department for evaluation. On presentation her blood pressure was 233/90 but she was asymptomatic in this regard. Her heart rate was normal and atrial flutter. She was placed on heparin drip by the hospitalist service. She received a dose of spironolactone and as needed hydralazine. She recalls being diagnosed with hypertension several years ago and has been treated for the past 6 or 7 years with losartan. She stopped checking her blood pressure at home because it remained elevated with systolic pressure in the 170s to 180s. She recalls being diagnosed with a murmur many years ago. She has chronic edema but believes it has improved since she has been hospitalized. She recalls being on hydrochlorothiazide in the past but had an adverse reaction. She denies any palpitations and does not recall her pulse when checking her blood pressure in the past. She denies syncope, near syncope, chest pain, shortness of breath, melena, or hematuria. She has occasional hemorrhoidal bleeding and has epistaxis more frequently, sometimes 3 days/week, chronically. She had a seizure when she was in the [place] several years ago and has been on phenobarbital. Review of systems: As above. Review of systems otherwise negative/unremarkable. Family history: Mother had CHF. Older brother with some heart condition, she believes possible MA in his 50s to 60s but she does not know the details. Social history: She denies tobacco, alcohol, or drug abuse. She lives alone. She has not been . No children. She was in the [place]. She was unaccompanied in her hospital room. Allergies Allergy/AdvReac Type Severity Reaction Status Date / Time phenytoin Allergy Severe THROAT Verified 05/05/23 09:26 SWELLING dilantin caps adhesive Allergy Unknown Rash Verified 05/05/23 09:14 oxycodone Allergy Unknown pt unsure Verified 05/05/23 09:14 Sulfa (Sulfonamide Allergy pt unsure Verified 05/05/23 09:14 Antibiotics) hydrochlorothiazide AdvReac Severe 'THUMPING Verified 05/05/23 09:14 [From Hyzaar] SENSATION IN SKIN OVER ENTIRE BODY' losartan [From Hyzaar] AdvReac Severe 'THUMPING Verified 05/05/23 09:14 SENSATION IN SKIN OVER ENTIRE BODY' acetaminophen AdvReac Mild NIGHTMARES Verified 05/05/23 09:14 Home Medications Medication Instructions Recorded Confirmed Type cholecalciferol (vitamin D3) 25 1,000 unit PO QAM 01/25/19 05/05/23 History mcg (1,000 unit) tablet (Vitamin D3) flaxseed oil 1,000 mg capsule 1,000 mg PO QAM 01/25/19 05/05/23 History naproxen sodium 220 mg tablet 220 mg PO DAILY PRN Pain 11/10/19 05/05/23 History ascorbic acid (vitamin C) 500 mg 500 mg PO QAM 12/04/21 05/05/23 History tablet phenobarbital 30 mg tablet 30 mg PO TID #90 tabs 01/06/23 05/05/23 Rx docusate sodium 50 mg capsule 50 mg PO DAILY PRN Constipation 04/28/23 05/05/23 History (Stool Softener) levothyroxine 125 mcg tablet 125 mcg PO QAM 04/28/23 05/05/23 History losartan 100 mg tablet 100 mg PO QAM 04/28/23 05/05/23 History Patient History Medical History Abnormal blood findings pt unable to specify. states "something about protein." follows with [facility]. Anxiety Cardiac murmur echo 11/2022 [place]. no clinical trials manager History of rectal abscess History of uterine cancer treated surgically HTN (hypertension) Hypercholesteremia Hypothyroidism Morbid obesity Osteoarthritis Poor historian Sciatica Seizures per pt, last seizure >20 years ago Surgical History History of cholecystectomy History of rectal surgery x 4 for rectal abscess History of removal of cyst multiple History of tooth extraction History of total abdominal hysterectomy and bilateral salpingo-oophorectomy Family History Father Hodgkin disease Mother Heart disease Sister Cancer Denies family history of Ovarian cancer Prostate cancer Myocardial infarction Breast cancer Colorectal cancer Social History Smoking Status: Never smoker Second Hand Exposure: No; Do You Dip or Chew Tobacco: No; Hx Alcohol Use: No Hx Substance Use: No Preferred Language: Macedonian Communication Ability: Effective Visual Impairment: No Limitations Hearing Ability: Normal Pulper Required: No Beliefs That Will Affect Care: None marital status: Single Current Living Situation: Alone current occupational status: retired current occupation: retired from career with [employer] Feels Safe at Home: Yes Childhood Exposure to Second-Hand Smoke: No Diet: regular caffeine: Yes during the past year weight has: decreased > 10 lbs Dental Care, Regularly: Yes Physical Activity Frequency: Daily Physical Activity Frequency Comment: stretch exercises for back and legs Seatbelt Use: always Sunscreen Use: No Assistive Devices: None Physical Exam Physical Exam: Gen.: No acute distress. Alert and oriented. HEENT: Anicteric sclera. Neck: No JVD. No bruits. Normal carotid upstrokes bilaterally. Cardiac: No ventricular heave. Irregular. Normal S1-S2. 1/6 systolic murmur. No rubs or gallops. Pulmonary: Clear to auscultation bilaterally without wheezes, rales, or rhonchi. Abdomen: Soft, nontender, nondistended, with normoactive bowel sounds. No bruits noted. Extremities: 2+ radial pulses bilaterally. 2+ posterior tibialis pulses bilaterally. Trace bilateral lower extremity edema. No cyanosis. Psychiatric: Affect appears appropriate. Results & Data Vital Signs (Past 12 Hours) Vital Signs Temp Pulse Pulse Resp BP Pulse Ox O2 Del Method 05/06/23 11:15 36.5 C 72 18 184/86 H 95 Room Air 05/06/23 08:00 65 05/06/23 08:00 Room Air 05/06/23 07:59 36.5 C 68 18 159/84 H 95 Room Air 05/06/23 03:00 36.7 C 69 20 163/89 H 95 Room Air Laboratory Results Laboratory Results - last 24 hr 05/05/23 05/05/23 05/05/23 11:44 11:44 12:53 WBC Cancelled RBC Cancelled Hgb Cancelled Hct Cancelled MCV Cancelled MCH Cancelled MCHC Cancelled RDW Std Deviation Cancelled RDW Coeff of Danette Cancelled Plt Count Cancelled MPV Cancelled Immature Gran % (Auto) Cancelled Neut % (Auto) Cancelled Lymph % (Auto) Cancelled [place] % (Auto) Cancelled Eos % (Auto) Cancelled Baso % (Auto) Cancelled Neut # (Auto) Cancelled Lymph # (Auto) Cancelled [place] # (Auto) Cancelled Eos # (Auto) Cancelled Baso # (Auto) Cancelled Immature Gran # (Auto) Cancelled Absolute Nucleated RBC Cancelled Nucleated RBC % (auto) Cancelled Neutrophils % (Manual) Cancelled Band Neutrophils % Cancelled Lymphocytes % (Manual) Cancelled Prolymphocyte % Cancelled Reactive Lymphs % (Man) Cancelled Monocytes % (Manual) Cancelled Eosinophils % (Manual) Cancelled Basophils % (Manual) Cancelled Metamyelocytes % (Man) Cancelled Myelocytes % (Man) Cancelled Promyelocytes % (Man) Cancelled Blast Cells % (Manual) Cancelled Plasma Cell % (Manual) Cancelled Other Cells % Cancelled Nucleated RBC % Cancelled Neutrophils # (Manual) Cancelled Band Neutrophils # Cancelled Total Absolute Neuts Cancelled Lymphocytes # (Manual) Cancelled Prolymphocyte # Cancelled Reactive Lymphs # Cancelled Total Abs Lymphocytes Cancelled Monocytes # (Manual) Cancelled Eosinophils # (Manual) Cancelled Basophils # (Manual) Cancelled Metamyelocytes # (Man) Cancelled Myelocytes # (Manual) Cancelled Promyelocytes # (Man) Cancelled Blast Cells # (Man) Cancelled Plasma Cell # (Manual) Cancelled Other Cells # Cancelled Nucleated RBCs # (Man) Cancelled Hypersegmented Neuts Cancelled Hyposegmented Neuts Cancelled Hypogranular Neuts Cancelled Large Granular Lymphs Cancelled # Lrg Granular Lymphs Cancelled Hairy Cells Cancelled Smudge Cells Cancelled Toxic Granulation Cancelled Toxic Vacuolation Cancelled Dohle Bodies Cancelled Ailyn Rods Cancelled Platelet Estimate Cancelled Hypogranular Platelets Cancelled Giant Platelets Cancelled Platelet Satelliting Cancelled RBC Morphology Cancelled Polychromasia Cancelled Hypochromasia Cancelled Poikilocytosis Cancelled Basophilic Stippling Cancelled Anisocytosis Cancelled Microcytosis Cancelled Macrocytosis Cancelled Spherocytes Cancelled Pappenheimer Bodies Cancelled Sickle Cells Cancelled Target Cells Cancelled Tear Drop Cells Cancelled Ovalocytes Cancelled Stomatocytes Cancelled Ling-Jay Bodies Cancelled Echinocytes Cancelled Acanthocytes (Spur) Cancelled Rouleaux Cancelled RBC Agglutinates Cancelled Schistocytes Cancelled Sezary Cell Cancelled PT INR APTT PTT Ratio Sodium Cancelled Potassium Cancelled Chloride Cancelled Carbon Dioxide Cancelled Anion Gap Cancelled BUN Cancelled Creatinine Cancelled Est Cr Clr Drug Dosing Cancelled Est GFR ( Amer) Cancelled Est GFR (Non-Af Amer) Cancelled BUN/Creatinine Ratio Cancelled Glucose Cancelled Calcium Cancelled Magnesium Cancelled Total Bilirubin Cancelled AST Cancelled ALT Cancelled Alkaline Phosphatase Cancelled Troponin I High Sens Cancelled Total Protein Cancelled Albumin Cancelled Globulin Cancelled Albumin/Globulin Ratio Cancelled TSH Urine Color Urine Appearance Urine pH Ur Specific [place] Urine Protein Urine Glucose (UA) Urine Ketones Urine Blood Urine Nitrite Urine Bilirubin Urine Urobilinogen Ur Leukocyte Esterase SARS-CoV-2, RNA, NAAT NEGATIVE Blood Parasites ID Cancelled 05/05/23 05/05/23 05/05/23 13:13 13:13 13:13 WBC 9.07 RBC 4.81 Hgb 15.7 Hct 45.4 MCV 94.4 MCH 32.6 MCHC 34.6 RDW Std Deviation 43.8 RDW Coeff of Danette 12.6 Plt Count 216 MPV 10.7 Immature Gran % (Auto) 0.2 Neut % (Auto) 65.7 Lymph % (Auto) 24.3 [place] % (Auto) 7.4 Eos % (Auto) 1.7 Baso % (Auto) 0.7 Neut # (Auto) 5.97 Lymph # (Auto) 2.20 [place] # (Auto) 0.67 H Eos # (Auto) 0.15 Baso # (Auto) 0.06 Immature Gran # (Auto) 0.02 Absolute Nucleated RBC Nucleated RBC % (auto) Neutrophils % (Manual) Band Neutrophils % Lymphocytes % (Manual) Prolymphocyte % Reactive Lymphs % (Man) Monocytes % (Manual) Eosinophils % (Manual) Basophils % (Manual) Metamyelocytes % (Man) Myelocytes % (Man) Promyelocytes % (Man) Blast Cells % (Manual) Plasma Cell % (Manual) Other Cells % Nucleated RBC % Neutrophils # (Manual) Band Neutrophils # Total Absolute Neuts Lymphocytes # (Manual) Prolymphocyte # Reactive Lymphs # Total Abs Lymphocytes Monocytes # (Manual) Eosinophils # (Manual) Basophils # (Manual) Metamyelocytes # (Man) Myelocytes # (Manual) Promyelocytes # (Man) Blast Cells # (Man) Plasma Cell # (Manual) Other Cells # Nucleated RBCs # (Man) Hypersegmented Neuts Hyposegmented Neuts Hypogranular Neuts Large Granular Lymphs # Lrg Granular Lymphs Hairy Cells Smudge Cells Toxic Granulation Toxic Vacuolation Dohle Bodies Ialyn Rods Platelet Estimate Hypogranular Platelets Giant Platelets Platelet Satelliting RBC Morphology Polychromasia Hypochromasia Poikilocytosis Basophilic Stippling Anisocytosis Microcytosis Macrocytosis Spherocytes Pappenheimer Bodies Sickle Cells Target Cells Tear Drop Cells Ovalocytes Stomatocytes Ling-Jay Bodies Echinocytes Acanthocytes (Spur) Rouleaux RBC Agglutinates Schistocytes Sezary Cell PT 11.5 INR 1.1 APTT 28.5 PTT Ratio 1.0 Sodium Potassium Chloride Carbon Dioxide Anion Gap BUN Creatinine Est Cr Clr Drug Dosing Est GFR ( Amer) Est GFR (Non-Af Amer) BUN/Creatinine Ratio Glucose Calcium Magnesium Total Bilirubin AST ALT Alkaline Phosphatase Troponin I High Sens Total Protein Albumin Globulin Albumin/Globulin Ratio TSH 1.952 Urine Color Urine Appearance Urine pH Ur Specific [place] Urine Protein Urine Glucose (UA) Urine Ketones Urine Blood Urine Nitrite Urine Bilirubin Urine Urobilinogen Ur Leukocyte Esterase SARS-CoV-2, RNA, NAAT Blood Parasites ID 05/05/23 05/05/23 05/05/23 13:13 15:05 22:45 WBC RBC Hgb Hct MCV MCH MCHC RDW Std Deviation RDW Coeff of Danette Plt Count MPV Immature Gran % (Auto) Neut % (Auto) Lymph % (Auto) [place] % (Auto) Eos % (Auto) Baso % (Auto) Neut # (Auto) Lymph # (Auto) [place] # (Auto) Eos # (Auto) Baso # (Auto) Immature Gran # (Auto) Absolute Nucleated RBC Nucleated RBC % (auto) Neutrophils % (Manual) Band Neutrophils % Lymphocytes % (Manual) Prolymphocyte % Reactive Lymphs % (Man) Monocytes % (Manual) Eosinophils % (Manual) Basophils % (Manual) Metamyelocytes % (Man) Myelocytes % (Man) Promyelocytes % (Man) Blast Cells % (Manual) Plasma Cell % (Manual) Other Cells % Nucleated RBC % Neutrophils # (Manual) Band Neutrophils # Total Absolute Neuts Lymphocytes # (Manual) Prolymphocyte # Reactive Lymphs # Total Abs Lymphocytes Monocytes # (Manual) Eosinophils # (Manual) Basophils # (Manual) Metamyelocytes # (Man) Myelocytes # (Manual) Promyelocytes # (Man) Blast Cells # (Man) Plasma Cell # (Manual) Other Cells # Nucleated RBCs # (Man) Hypersegmented Neuts Hyposegmented Neuts Hypogranular Neuts Large Granular Lymphs # Lrg Granular Lymphs Hairy Cells Smudge Cells Toxic Granulation Toxic Vacuolation Dohle Bodies Ailyn Rods Platelet Estimate Hypogranular Platelets Giant Platelets Platelet Satelliting RBC Morphology Polychromasia Hypochromasia Poikilocytosis Basophilic Stippling Anisocytosis Microcytosis Macrocytosis Spherocytes Pappenheimer Bodies Sickle Cells Target Cells Tear Drop Cells Ovalocytes Stomatocytes Ling-Jay Bodies Echinocytes Acanthocytes (Spur) Rouleaux RBC Agglutinates Schistocytes Sezary Cell PT INR APTT 40.7 H* PTT Ratio 1.4 Sodium 140 Potassium 4.0 Chloride 105 Carbon Dioxide 27 Anion Gap 8 BUN 21 Creatinine 0.83 Est Cr Clr Drug Dosing 84.6 Est GFR ( Amer) 80.5 Est GFR (Non-Af Amer) 69.5 BUN/Creatinine Ratio 25.3 H Glucose 115 H Calcium 9.7 Magnesium 1.9 Total Bilirubin 0.4 AST 13 ALT 12 Alkaline Phosphatase 68 Troponin I High Sens 11.3 Total Protein 7.9 Albumin 4.1 Globulin 3.8 Albumin/Globulin Ratio 1.1 TSH Urine Color Yellow Urine Appearance Clear Urine pH 8.0 H Ur Specific [place] 1.009 Urine Protein Negative Urine Glucose (UA) Negative Urine Ketones Negative Urine Blood Negative Urine Nitrite Negative Urine Bilirubin Negative Urine Urobilinogen Negative Ur Leukocyte Esterase Negative SARS-CoV-2, RNA, NAAT Blood Parasites ID 05/06/23 05/06/23 05/06/23 05:43 05:43 05:43 WBC 7.65 RBC 4.36 Hgb 14.2 Hct 41.8 MCV 95.9 MCH 32.6 MCHC 34.0 RDW Std Deviation 45.5 RDW Coeff of Danette 12.9 Plt Count 210 MPV 10.9 Immature Gran % (Auto) 0.4 Neut % (Auto) 59.3 Lymph % (Auto) 28.4 [place] % (Auto) 8.8 Eos % (Auto) 2.4 Baso % (Auto) 0.7 Neut # (Auto) 4.55 Lymph # (Auto) 2.17 [place] # (Auto) 0.67 H Eos # (Auto) 0.18 Baso # (Auto) 0.05 Immature Gran # (Auto) 0.03 Absolute Nucleated RBC Nucleated RBC % (auto) Neutrophils % (Manual) Band Neutrophils % Lymphocytes % (Manual) Prolymphocyte % Reactive Lymphs % (Man) Monocytes % (Manual) Eosinophils % (Manual) Basophils % (Manual) Metamyelocytes % (Man) Myelocytes % (Man) Promyelocytes % (Man) Blast Cells % (Manual) Plasma Cell % (Manual) Other Cells % Nucleated RBC % Neutrophils # (Manual) Band Neutrophils # Total Absolute Neuts Lymphocytes # (Manual) Prolymphocyte # Reactive Lymphs # Total Abs Lymphocytes Monocytes # (Manual) Eosinophils # (Manual) Basophils # (Manual) Metamyelocytes # (Man) Myelocytes # (Manual) Promyelocytes # (Man) Blast Cells # (Man) Plasma Cell # (Manual) Other Cells # Nucleated RBCs # (Man) Hypersegmented Neuts Hyposegmented Neuts Hypogranular Neuts Large Granular Lymphs # Lrg Granular Lymphs Hairy Cells Smudge Cells Toxic Granulation Toxic Vacuolation Dohle Bodies Ailyn Rods Platelet Estimate Hypogranular Platelets Giant Platelets Platelet Satelliting RBC Morphology Polychromasia Hypochromasia Poikilocytosis Basophilic Stippling Anisocytosis Microcytosis Macrocytosis Spherocytes Pappenheimer Bodies Sickle Cells Target Cells Tear Drop Cells Ovalocytes Stomatocytes Ling-Jay Bodies Echinocytes Acanthocytes (Spur) Rouleaux RBC Agglutinates Schistocytes Sezary Cell PT INR APTT 36.2 H PTT Ratio 1.3 Sodium 141 Potassium 4.0 Chloride 107 Carbon Dioxide 23 Anion Gap 11 BUN 25 H Creatinine 0.89 Est Cr Clr Drug Dosing 78.5 Est GFR ( Amer) 74.0 Est GFR (Non-Af Amer) 63.8 BUN/Creatinine Ratio 28.1 H Glucose 116 H Calcium 8.9 Magnesium Total Bilirubin AST ALT Alkaline Phosphatase Troponin I High Sens Total Protein Albumin Globulin Albumin/Globulin Ratio TSH Urine Color Urine Appearance Urine pH Ur Specific [place] Urine Protein Urine Glucose (UA) Urine Ketones Urine Blood Urine Nitrite Urine Bilirubin Urine Urobilinogen Ur Leukocyte Esterase SARS-CoV-2, RNA, NAAT Blood Parasites ID Diagnostic Findings Telemetry personally reviewed: Atrial flutter with reasonable heart rate. Echo 12/17/2022 report reviewed: Normal LV systolic function. Mildly increased aortic outflow velocity reported but valves were not well seen. Mild AI. ECG personally reviewed: ECG 05/05/2023 at 11:35 AM: Atrial flutter 73 bpm. Possible anterior infarct. After today's visit, called from nursing staff that she converted and repeat ECG personally reviewed from 06/05/2023 at 11:23 AM: Sinus rhythm with PACs 63 bpm. Cannot rule out anterior infarct. Labs personally reviewed from 05/06/2023, demonstrating normal blood counts, stabl e renal function, normal potassium. Labs from 05/05/2023 demonstrated normal TSH. History and physical report reviewed. Chest x-ray 05/05/2023: No acute chest disease per radiology. Medications Administered Current Inpatient Medications Ascorbic Acid (Ascorbic Acid 500 Mg Tab) 500 mg PO QAM [facility] Stop: 06/05/23 08:59 Last Admin: 05/06/23 07:53 Dose: 500 mg Hydralazine HCl (Hydralazine Hcl 20 Mg/Ml Vial) 5 mg IV Q4H PRN PRN Reason: BP >180 Stop: 06/04/23 15:49 Heparin Sodium/Dextrose (Heparin Sodium/Dextrose) 25,000 units in 500 mls @ 22 mls/hr IV .[id number] [facility]; Protocol Stop: 06/04/23 15:44 Last Titration: 05/06/23 07:18 Dose: 1,100 units/hr, 22 mls/hr Levothyroxine Sodium (Levothyroxine Sodium 125 Mcg Tablet) 125 mcg PO DAILYBB [facility] Stop: 06/05/23 06:29 Last Admin: 05/06/23 05:58 Dose: 125 mcg Lorazepam (Lorazepam 2 Mg/1 Ml Vial) 2 mg IV Q5M PRN PRN Reason: Seizure Losartan Potassium (Losartan Potassium 50 Mg Tab) [facility] [place] Stop: 06/05/23 08:59 Last Admin: 05/06/23 07:52 Dose: 100 mg Non-Formulary Patient's Own Med: Prednisolone/Moxifloxacin/Bromfenac 1 each OPR [id number] [facility] Stop: 06/04/23 21:29 Last Admin: 05/06/23 09:04 Dose: 1 drops Phenobarbital (Phenobarbital 30 Mg Tab) 30 mg PO TID [facility] Stop: 06/04/23 20:59 Last Admin: 05/06/23 08:03 Dose: 30 mg Polyethylene Glycol (Polyethylene (Miralax) 17 Gm Pack) 17 gm PO DAILY PRN PRN Reason: Constipation Stop: 06/04/23 20:34 Last Admin: 05/05/23 22:06 Dose: 17 gm Spironolactone (Spironolactone 25 Mg Tab) 25 mg PO NOW ONE Stop: 05/06/23 11:31 Spironolactone (Spironolactone 25 Mg Tab) 25 mg PO QAM [facility] Stop: 06/06/23 08:59 PG Care Time/CCT Total # of Minutes Spent Total Time Spent with Patient: Total time spent is greater than 50% in coordination of care (as documented) at patient's floor/unit and/or counseling patient: Coding Level of Care Code 63677 INT INP/OBS CARE 3/75MIN Diagnoses Atrial flutter I48.92 Atrial flutter type: unspecified Hypertension I10 Hypertension type: unspecified Systolic ejection murmur R01.1 (1) Atrial flutter Atrial flutter type: unspecified Qualified Code(s): I48.92 - Unspecified atrial flutter (2) Hypertension Hypertension type: unspecified Qualified Code(s): I10 - Essential (primary) hypertension
[2023-05-06] MEDS ORDERED: SPIRONOLACTONE 25 MG TAB PO ONE (12:00)
[2023-05-06] MEDS: hydrALAZINE HCL 20 MG/ML VIAL IV PRN (12:07)
--- NOTE | 2023-05-06 13:56 | XCELERA ---
[id number] [id number]
[2023-05-06 15:10] LABS: Partial Thromboplastin Ratio 1.4
[2023-05-06] MEDS: POLYETHYLENE (MIRALAX) 17 GM PACK PO PRN (15:12)
[2023-05-06] MEDS: HEPARIN SODIUM/DEXTROSE 25,000 UNITS/500 ML BAG IV SCH (17:09)
--- NOTE | 2023-05-06 20:35 | Hospitalist Progress Note ---
Date of Service May 06, 2023 Assessment & Plan (1) Atrial flutter: Plan: presented in a.flutter while in such was rate controlled without AV jg agents and had no symptoms spontaneously converted back to NSR about 1130 today cont to monitor on telemetry TSH/K/mag wnl echo findings noted agree with anticoagulation currently on heparin infusion unfortunately coumadin + DOACS all interact to some degree with her phenobarbital will check with pharmacy to see which agent has the least interaction cont heparin infusion in meantime appreciate cardiology consult plan for EP eval as outpatient with Dr Lynn to discuss aflutter ablation as she is a poor long-term anticoagulation candidate (2) Hypertension: Plan: uncontrolled add amlodipine 5mg daily cont aldactone 25mg daily cont losartan 100mg daily pt at risk of KIERAN - strongly consider sleep study if she has not had one before (3) Hyperlipidemia: Plan: LDL 155 in 2021 not on meds for this issue f/u with PCP For management (4) Hypothyroidism: Plan: TSH 1.9 cont synthroid (5) Seizure disorder: Plan: long-standing dating back to her 20s is on phenobarbital TID no changes at this time no recent seizure activity check a phenobarbital level am (6) Morbid obesity with BMI of 45.0-49.9, adult: Plan: BMI 45.5 (7) Prediabetes: Plan: h/o recheck a1c in am Plan watch overnight have to figure out PO anticoagulant that is safest w/ her phenobarbital anticipate d/c home tomorrow care d/w Dr Wild from cardiology Admission and Anticipated Discharge Date Admission Date: May 05, 2023 Subjective rate controlled a.flutter all night converted to NSR about 1130am today since then has had atrial bigeminy with NSR when pt was in aflutter she had NO cardiopulmonary symptoms she mentions she has been on phenobarbital since her 20s no other acute complaints Review of Systems Review of Systems: cv - no chest pain or palpitations pulm - no dyspnea GI - no pain Physical Exam Physical Exam: gen - morbidly obese, NAD, pleasant eyes - R eye patch in place; wearing sunglasses mouth - MMM neck - no JVD heart - irregular, s1 s2, no murmur lungs - CTA b/l abd - soft NT ND BS+ ext - no edema, pulses 2+ b/l psych - a/o x 3 Results & Data Results & Data Vital Signs (Past 12 Hours) Vital Signs Temp Pulse Pulse Resp BP Pulse Ox O2 Del Method 05/06/23 19:00 36.4 C L 69 23 193/82 H 98 Room Air 05/06/23 16:08 36.5 C 75 21 164/60 H 96 Room Air 05/06/23 15:00 82 05/06/23 11:15 36.5 C 72 18 184/86 H 95 Room Air Laboratory Results Laboratory Results - last 24 hr 05/06/23 05/06/23 05/06/23 05:43 05:43 05:43 WBC 7.65 RBC 4.36 Hgb 14.2 Hct 41.8 MCV 95.9 MCH 32.6 MCHC 34.0 RDW Std Deviation 45.5 RDW Coeff of Danette 12.9 Plt Count 210 MPV 10.9 Immature Gran % (Auto) 0.4 Neut % (Auto) 59.3 Lymph % (Auto) 28.4 Florence % (Auto) 8.8 Eos % (Auto) 2.4 Baso % (Auto) 0.7 Neut # (Auto) 4.55 Lymph # (Auto) 2.17 Florence # (Auto) 0.67 H Eos # (Auto) 0.18 Baso # (Auto) 0.05 Immature Gran # (Auto) 0.03 APTT 36.2 H PTT Ratio 1.3 Sodium 141 Potassium 4.0 Chloride 107 Carbon Dioxide 23 Anion Gap 11 BUN 25 H Creatinine 0.89 Est Cr Clr Drug Dosing 78.5 Est GFR ( Amer) 74.0 Est GFR (Non-Af Amer) 63.8 BUN/Creatinine Ratio 28.1 H Glucose 116 H Calcium 8.9 05/06/23 05/06/23 14:33 21:34 WBC RBC Hgb Hct MCV MCH MCHC RDW Std Deviation RDW Coeff of Danette Plt Count MPV Immature Gran % (Auto) Neut % (Auto) Lymph % (Auto) Florence % (Auto) Eos % (Auto) Baso % (Auto) Neut # (Auto) Lymph # (Auto) Florence # (Auto) Eos # (Auto) Baso # (Auto) Immature Gran # (Auto) APTT 39.0 H 43.1 H* PTT Ratio 1.4 1.5 Sodium Potassium Chloride Carbon Dioxide Anion Gap BUN Creatinine Est Cr Clr Drug Dosing Est GFR ( Amer) Est GFR (Non-Af Amer) BUN/Creatinine Ratio Glucose Calcium Diagnostic Findings echo - PG Care Time/CCT Total # of Minutes Spent Total Time Spent with Patient: Total time spent is greater than 50% in coordination of care (as documented) at patient's floor/unit and/or counseling patient: Coding Level of Care Code 48105 SUB INP/OBS CARE 2/35MIN Diagnoses Atrial flutter I48.92 Atrial flutter type: unspecified Hypertension I10 Hypertension type: unspecified Hyperlipidemia E78.5 Hypothyroidism E03.9 Seizure disorder G40.909 Morbid obesity with BMI of 45.0-49.9, adult E66.01; Z68.42 Prediabetes R73.03 (1) Atrial flutter Atrial flutter type: unspecified Qualified Code(s): I48.92 - Unspecified atrial flutter (2) Hypertension Hypertension type: unspecified Qualified Code(s): I10 - Essential (primary) h ypertension
[2023-05-06] MEDS ORDERED: amLODIPine BESYLATE 5 MG TAB PO ONE (20:45)
[2023-05-06 22:25] LABS: Partial Thromboplastin Ratio 1.5
[2023-05-06 22:32] LABS: Partial Thromboplastin Time 43.1 Seconds (21.0-31.0)
[2023-05-07] MEDS: hydrALAZINE HCL 20 MG/ML VIAL IV PRN (03:11)
--- NOTE | 2023-05-07 05:54 | Electrocardiogram Report ---
Test Reason : Blood Pressure : / mmHG Vent. Rate : 073 BPM Atrial Rate : 312 BPM P-R Int : 000 ms QRS Dur : 082 ms QT Int : 382 ms P-R-T Axes : 095 017 051 degrees QTc Int : 420 ms Atrial flutter with variable A-V block Possible Anterior infarct , age undetermined Cannot rule out Inferior infarct Abnormal ECG When compared with ECG of 05-MAY-2023 10:45, No significant change Confirmed by Carmine Wild ([id number]) on 05/07/2023 5:54:02 AM Referred By: Grover Alcazar Confirmed By:Carmine Wild
[2023-05-07] MEDS: LEVOTHYROXINE SODIUM 125 MCG TABLET PO SCH (05:59)
[2023-05-07] MEDS: PREDNISOLONE OPR SCH ×2 (06:02→09:02)
[2023-05-07] MEDS: MOXIFLOXACIN OPR SCH ×2 (06:02→09:02)
[2023-05-07] MEDS: BROMFENAC OPR SCH ×2 (06:02→09:02)
[2023-05-07] MEDS: ASCORBIC ACID 500 MG TAB PO SCH (08:01)
[2023-05-07] MEDS: LOSARTAN POTASSIUM 50 MG TAB PO SCH (08:01)
[2023-05-07] MEDS: PHENobarbitaL 30 MG TAB PO SCH ×2 (08:05→12:58)
[2023-05-07 08:59] LABS: BUN Creatinine Ratio 27.3 (10-20); Calcium 8.8 mg/dl (8.6-10.3); Creatinine Clr Calc Pharmacy 70.3 ml/min; Est GFR (African American) 65.1 ml/min; Est GFR (Non-African American) 56.1 ml/min; Potassium 4.1 mmol/L (3.5-5.1)
[2023-05-07] MEDS ORDERED: SPIRONOLACTONE 25 MG TAB PO SCH (09:00)
[2023-05-07] MEDS ORDERED: amLODIPine BESYLATE 5 MG TAB PO SCH (09:00)
[2023-05-07] MEDS ORDERED: WARFARIN SOD 10 MG TAB PO ONE (09:00)
[2023-05-07 09:13] LABS: Partial Thromboplastin Ratio 1.7
[2023-05-07 10:11] LABS: Estimated Average Glucose 120 mg/dl; Hemoglobin A1C 5.8 % (4.5-5.6)
[2023-05-07] MEDS: HEPARIN SODIUM/DEXTROSE 25,000 UNITS/500 ML BAG IV SCH (11:27)
[2023-05-07] MEDS ORDERED: NON-FORMULARY PATIENT'S OWN MED OPR SCH (13:00)
[2023-05-07] MEDS ORDERED: HEPARIN--STOP ORDER ONE (15:00)
--- NOTE | 2023-05-07 16:31 | Discharge Summary ---
Date of Service May 07, 2023 Admission HPI Per Admitting Provider Mya is seen in the ER post cataract surgery for afib with variable block. This is her first episode of A-fib/a flutter. She notes her brother many years ago did have a medical condition that causes heart rate to go very high into the 150s, after returning home he went back into a normal rhythm but they were told that he had a "blood clot in his heart "which caused a stroke and . Mya has no personal history of blood clots, DVT, PE. She does have a history of seizure had 1x in , stable for many years with no recent surgeries. Follows w/ Dr. Maynard and has been doing well for many years on phen obarbital which is continued Had a hx of leg swelling, but no heart issues/orthopnea/shortness of breath/chest pain. Was put on a fluid pill in the past but had a reaction but does not remember what. Is noted to have had a 'thumping sensation' from hyzaar, but this was discontinued. No history of rash, throat swelling No chest pressure, chest pain, palpitations. No shortness of breath or difficul ty breathing No nausea/vomiting/diarrhea/constipation Reports she 'bleeds a lot' when someone pokes her, but has no hx of GIB. +history of mild nosebleeds. No hx of hospitalization for any bleeding, never recieved blood before. [id number]= 3 She reports that her family history is not well known as most people in her family do not share their medical information so history of this is limited other than her brother passing of a blood clot in the heart as noted above. Medical History: Reviewed Medications: Reviewed Surgical History: Reviewed Family history: Reviewed Allergies: Reviewed Social History: No tobacco use. No etoh use. Code Status: Full Code. Surrogate DM would be [phone] Rei Geronimo, friend. Discharge Exam gen - morbidly obese, NAD, pleasant eyes - R eye patch in place; wearing sunglasses mouth - MMM neck - no JVD heart - irregular, s1 s2, no murmur lungs - CTA b/l abd - soft NT ND BS+ ext - no edema, pulses 2+ b/l psych - a/o x 3 Discharge Data Allergies Allergy/AdvReac Type Severity Reaction Status Date / Time phenytoin Allergy Severe THROAT Verified 05/05/23 09:26 SWELLING dilantin caps adhesive Allergy Unknown Rash Verified 05/05/23 09:14 oxycodone Allergy Unknown pt unsure Verified 05/05/23 09:14 Sulfa (Sulfonamide Allergy pt unsure Verified 05/05/23 09:14 Antibiotics) hydrochlorothiazide AdvReac Severe 'THUMPING Verified 05/05/23 09:14 [From Hyzaar] SENSATION IN SKIN OVER ENTIRE BODY' losartan [From Hyzaar] AdvReac Severe 'THUMPING Verified 05/05/23 09:14 SENSATION IN SKIN OVER ENTIRE BODY' acetaminophen AdvReac Mild NIGHTMARES Verified 05/05/23 09:14 Consultations 05/05/23 14:17 ED Decision to Admit Stat 05/05/23 20:17 Consult Cardiology Routine Hospital Course (1) Atrial flutter: presented in a.flutter while in such was rate controlled without AV jg agents and had no symptoms spontaneously converted back to NSR about 1130 today cont to monitor on telemetry TSH/K/mag wnl echo findings noted agree with anticoagulation currently on heparin infusion unfortunately coumadin + DOACS all interact to some degree with her phenobarbital will check with pharmacy to see which agent has the least interaction cont heparin infusion in meantime appreciate cardiology consult plan for EP mindi as outpatient with Dr Lynn to discuss aflutter ablation as she is a poor long-term anticoagulation candidate (2) Hypertension: uncontrolled add amlodipine 5mg daily cont aldactone 25mg daily cont losartan 100mg daily pt at risk of KIERAN - strongly consider sleep study if she has not had one before (3) Hyperlipidemia: LDL 155 in 2021 not on meds for this issue f/u with PCP For management (4) Hypothyroidism: TSH 1.9 cont synthroid (5) Seizure disorder: long-standing dating back to her 20s is on phenobarbital TID no changes at this time no recent seizure activity check a phenobarbital level am (6) Morbid obesity with BMI of 45.0-49.9, adult: BMI 45.5 (7) Prediabetes: h/o recheck a1c in am Plan watch overnight have to figure out PO anticoagulant that is safest w/ her phenobarbital anticipate d/c home tomorrow care d/w Dr Wild from cardiology Discharge Plan Discharge Items Patient Disposition: Home - Self-Care Reason For Visit: Atrial Flutter Discharge Diagnosis: 1. Atrial flutter 2. Uncontrolled hypertension 3. Seizure disorder 4. Pre-diabetes; hemoglobin a1c 5.8% 5. Hypothyroidism 6. Recent right-sided cataract surgery by Dr Alcazar Activity: As commented below Activity Comment: follow any activity instructions as laid out by Dr Alcazar Non-emergency contact: Primary Care Provider, Thermodynamics Teacher and Executive Director Of Nursing Call non-emergency contact if: you have any medication questions and your symptoms worsen Follow-up/Referrals: Ana Spencer MD, PhD [Pathologist] - 05/10/23 9:00 am (Anticoagulation Clinic (Blood thinner clinic) ) Chris Acosta DO [Primary Care Provider] - 05/11/23 8:00 am (5-7 days for blood pressure check & hospital follow-up ) Campos Lynn MD [Physician] - (Dr Lynn's office will coordinate follow-up for your atrial flutter) Grover Alcazar DO [Physician] - (Please see Dr Alcazar either on 05/10/23 OR 05/11/23 for recheck of your right eye.) Diet: Heart Healthy Addtl Attending Provider Instructions: Ms Coronel, You were hospitalized for newly discovered atrial flutter ("A flutter" for short). This is an irregular heart rhythm that originates in the top portion of the heart. On 05/06/23 you converted from atrial flutter back to normal sinus rhythm. You have been in normal rhythm since that time. Dr Wild with [facility] saw you in consult. He recommended that you follow-up with his partner, Dr Campos Lynn, to discuss possible atrial flutter ablation procedure. In addition, we have initiated blood thinner medication - also known as "anticoagulants." Atrial flutter can lead to blood clot formation in the heart which then can put you at risk of stroke. By thinning the blood with blood thinners you can reduce this risk. Your blood thinner is COUMADIN (WARFARIN). We gave your first dose of Coumadin on 05/07/23. During your stay we made adjustments in your blood pressure medication regimen. Your blood pressures have improved with 2 new medications. Recommendations - 1. Coumadin (warfarin) - * TAKE coumadin 7.5mg daily on 05/08/23; take this in the afternoon * I have given you 5mg tablets so you will take 1.5 tablets as your dose * on Wednesday05/09/23 also take 7.5mg of coumadin in the afternoon * then on Wednesday05/10/[address] Spencer in the coumadin clinic for an "INR" check to determine the thickness of your blood; she will give you guidance at that visit regarding your coumadin dose moving forward * normal INR for most people is a value of 1 * your INR goal will be between 2 and 3 * the higher the INR the more thin your blood is 2. For high blood pressure - start both of these medications TOMORROW, 05/08/23 - * spironolactone 25mg once daily - take in the MORNING * amlodipine 5mg once daily - take at bedtime * you will continue your losartan as previous 3. For your right eye - * OK to remove the plastic eye patch DURING THE DAY * However, please wear the eye patch while you sleep on Wednesday night, 05/07/23, as well as Wednesday night, 05/08/23 * Starting this Wednesday you do not need to wear the patch any longer at any time 4. Eye drops for Right eye - 1 drop FOUR TIMES DAILY until you see Dr Alcazar 5. Please discontinue all forms of anti-inflammatory pills including - * motrin * alleve * ibuprofen * naprosyn * naproxyn * aspirin Anti-inflammatory pills interact with coumadin. 6. It is OK to take tylenol as needed for aches/pains. 7. If possible please purchase a blood pressure cuff and check your blood pressure once or twice a day. Write the numbers down and show these to your family doctor. Follow-up - see separate section Return to [facility] if - * you are concerned you are back in atrial flutter (you have palpitations, rapid heart beating, fluttering of the heart, your pulse seems irregular, etc) * you are dizzy or lightheaded * you have shortness of breath * you have bleeding from your rectum, urethra, vagina, or a heavy nosebleed * any other concerns It was our pleasure to care for you! Pending Studies at Discharge: No Stand-Alone Forms: My [facility], Smoking Cessation Medications and DC Order Prescriptions: New reicucojtoip-rmfptfpv-[id number] 1-0.5-0.075 % drops,suspension 1 drp ophthalmic (eye) QID Qty: 5 0RF Rx Instructions: RIGHT EYE. warfarin 5 mg tablet 7.5 mg PO DAILY Qty: 60 2RF amlodipine [Norvasc] 5 mg Tablet 5 mg PO HS Qty: 30 2RF Rx Instructions: for high blood pressure spironolactone 25 mg Tablet 25 mg PO QAM Qty: 30 2RF Rx Instructions: for high blood pressure Continued phenobarbital 30 mg tablet 30 mg PO TID Qty: 90 5RF flaxseed oil 1,000 mg Capsule 1,000 mg PO QAM cholecalciferol (vitamin D3) [Vitamin D3] 1,000 unit Tablet 1,000 unit PO QAM ascorbic acid (vitamin C) 500 mg tablet 500 mg PO QAM Stool Softener 50 mg Capsule 50 mg PO DAILY PRN (Reason: Constipation) levothyroxine 125 mcg tablet 125 mcg PO QAM losartan 100 mg tablet 100 mg PO QAM Discontinued naproxen sodium 220 mg tablet 220 mg PO DAILY PRN (Reason: Pain) Discharge Orders: Discharge Order (Routine); Ordered 05/07/23 Ordered By: Salbador Jones/Other Patient Handouts: What to Know When TakingWarfarin, Understanding Atrial Flutter Admission Data Admit Date/Time: 05/05/23 15:35 Attending Provider: Salbador Keller Admit Provider: Howard Kramer Primary Care Provider: Chris Acosta Other Providers: Sean Alvarez ; Carmine Wild Coding Diagnoses Atrial flutter I48.92 Atrial flutter type: unspecified Hypertension I10 Hypertension type: unspecified Hyperlipidemia E78.5 Hypothyroidism E03.9 Seizure disorder G40.909 Morbid obesity with BMI of 45.0-49.9, adult E66.01; Z68.42 Prediabetes R73.03
--- NOTE | 2023-05-08 22:03 | Electrocardiogram Report ---
Test Reason : Blood Pressure : / mmHG Vent. Rate : 063 BPM Atrial Rate : 063 BPM P-R Int : 164 ms QRS Dur : 072 ms QT Int : 414 ms P-R-T Axes : 060 015 067 degrees QTc Int : 423 ms Sinus rhythm with Premature atrial complexes with Aberrant conduction Possible Anterior infarct (cited on or before 24-FEB-2018) Abnormal ECG When compared with ECG of 05-MAY-2023 11:35, Sinus rhythm has replaced Atrial flutter Confirmed by Carmine Wild ([id number]) on 05/08/2023 10:03:11 PM Referred By: REFERRED SELF Confirmed By:Carmine Wild
== END 2023-05-07 18:14 | disposition home or self-care (01) | DRG 309 ==
LOC: ED 11:20 → 2S 15:35 → SUATTDRO 15:35 → 2S 20:00